=== PATIENT | male | born 2000 ===

== ENCOUNTER 2022-11-05 22:02 | Emergency (ER) | payer SELFPAY ==
[2022-11-05 23:48] VITALS: BP 140/94; PULSE 65; RESP 16; TEMP 36.5; O2SAT 99; BMI 26.6
== END 2022-11-06 05:03 | disposition left against medical advice (07) ==
PROVIDERS: Emergency Provider Emergency Medicine
DX: M79.671 Pain in right foot (principal); M79.672 Pain in left foot
CPT/HCPCS: 99281